=== PATIENT | male | born 2000 | race Caucasian/White ===

== ENCOUNTER 2020-08-13 23:33 | Emergency (ER) | payer OTHER, SELFPAY ==
--- NOTE | ~2020-08-13 | CT_ITS ---
EXAMINATION: CT brain wo con DATE: 08/14/2020 00:10 INDICATION: Syncope TECHNIQUE: Computed tomography (CT) of the head was performed without intravenous contrast. Sagittal and coronal reconstructions were performed. The mA was adjusted according to patient size. Iterative reconstruction technique was employed. The dose-length product was 605.33 mGy-cm. COMPARISON: head CT dated 05/29/17 FINDINGS: No acute intracranial hemorrhage, acute infarction or abnormal extra axial fluid collection. Ventricl es are normal and symmetric. No mass/mass effect. The orbits, paranasal sinuses and mastoid air cells are normal. IMPRESSION: 1. Normal head CT Reviewed, dictated and finalized at location A. IMPRESSION: 1. Normal head CT
--- NOTE | ~2020-08-13 | XR_ITS ---
EXAMINATION: XR chest 1V portable DATE: 08/14/2020 00:14 INDICATION: Syncope TECHNIQUE: frontal view of the chest was obtained. COMPARISON: Chest radiograph dated 05/29/2017 FINDINGS: The lungs remain clear with no focal airspace opacities, pulmonary edema, pleural effusion or pneumot horax. The cardiomediastinal silhouette is normal. Visualized bones and soft tissues are unremarkable . IMPRESSION: 1. Normal chest radiograph. Reviewed, dictated and finalized at location A. IMPRESSION: 1. Normal chest radiograph.
[2020-08-13 23:34] VITALS: BP 114/63; PULSE 66; RESP 16; TEMP 37; O2SAT 100
--- NOTE | 2020-08-13 23:51 | ECG_ITS ---
Measurements Intervals [place] Rate: 56 P: 27 [place]: 167 QRS: 79 QRSD: 88 T: 48 QT: 382 QTc: 371 Interpretive Statements SINUS BRADYCARDIA WITH SINUS ARRHYTHMIA BASELINE ARTIFACT- I, II, AVR, AVL BORDERLINE ECG Electronically Signed On 08-14-2020 7:07:26 CDT by August Figueroa D.O.
[2020-08-14 00:08] LABS: Basophils Absolute Auto 0.1 K/mm3 (0.0-0.1); Basophils Percent Auto 0.8 % (0.2-1.2); Eosinophils Absolute Auto 0.2 K/mm3 (0-0.3); Eosinophils Percent Auto 3.3 % (0-4.4); Hematocrit 41.7 % (42.0-52.0); Hemoglobin 14.5 g/dL (14.0-18.0); Immature Granulocyte Absolute 0.01 K/mm3 (0.00-0.031); Immature Granulocyte Percent A 0.2 % (0-0.5); Lymphocytes Absolute Auto 2.11 K/mm3 (0.9-3.2); Lymphocytes Percent Auto 32.7 % (18.3-44.2); Mean Corpuscular HGB Conc 34.8 g/dl (32-36); Mean Corpuscular Hemoglobin 32.3 pg (26-34); Mean Corpuscular Volume 92.9 fl (80-100); Mean Platelet Volume 10.2 fl (7.4-10.4); Monocytes Absolute Auto 0.6 K/mm3 (0.1-0.6); Monocytes Percent Auto 8.8 % (2.6-8.5); Neutrophils Absolute Auto 3.5 K/mm3 (1.3-6.7); Neutrophils Percent Auto 54.2 % (45.5-73.1); Platelet Count Result 217 k/mm3 (150-375); Red Blood Count 4.49 M/mm3 (4.6-6.20); Red Cell Distribution Width 11.9 % (11.5-14.5); White Blood Count 6.5 K/mm3 (4.5-10.0)
[2020-08-14] MEDS: SODIUM CHLORIDE 0.9% IV 1,000 ML 999 ML IV CONT (00:14)
[2020-08-14 00:19] LABS: Ethanol < 10 mg/dL (<10)
[2020-08-14 00:20] LABS: Alanine Aminotransferase 26 U/L (4-50); Albumin Level 4.3 g/dL (3.5-5.1); Alkaline Phosphatase 49 U/L (38-126); Anion Gap 7 mmol/L (8-16); Aspartate Amino Transferase 23 U/L (17-59); Bilirubin,Total 0.2 mg/dL (0.2-1.3); Blood Urea Nitrogen 17 mg/dL (9-20); Calcium 9.1 mg/dL (8.4-10.2); Carbon Dioxide 29 mmol/L (22-30); Chloride 105 mmol/L (98-107); Estimated CRCL calculation 102 ml/min; Estimated Glomerular Filt Rate > 60; Glucose 110 mg/dL (75-110); Potassium 3.6 mmol/L (3.4-5.0); Sodium 141 mmol/L (137-145)
--- NOTE | 2020-08-14 00:22 | PC.NURSE ---
called lab to add on D Dimer
[2020-08-14 00:31] LABS: Troponin I < 0.012 ng/mL (0.000-0.034)
--- NOTE | 2020-08-14 00:48 | ED.GENADULT ---
HPI - General Adult General Chief complaint: Dizziness Stated complaint: syncope Time Seen by Provider: 08/13/20 23:41 Source: RN notes reviewed History of Present Illness HPI narrative: Patient presents to emergency department from home for syncopal episode. Patient states that he was at home this evening he states he was having some discomfort in his right armpit. He states that he had stood up to show his girlfriend and put his arms above his head when he became lightheaded and passed out. Per the patient's significant other he was only out for approximately 5 seconds. No seizure-like activity was noted. The patient states he had felt fine today and had no symptoms throughout the day no recent illness. He denied having chest pain shortness of breath or any other symptoms and is asymptomatic at this time Related Data Allergies Allergy/AdvReac Type Severity Reaction Status Date / Time Cat Dander Allergy Mild Uncoded 04/26/08 13:10 Dog Dander Allergy Mild Uncoded 04/26/08 13:10 [email or web address] Allergy Mild Uncoded 02/02/09 14:31 Review of Systems Review of Systems: Narrative: Gen.: Denies fevers or chills Eyes: Denies eye pain or visual change ENT: Denies congestion Respiratory: Denies shortness of breath or cough CV: See HPI GI: Denies abdominal pain nausea, emesis or diarrhea Musculoskeletal: Denies back pain or muscle pain Neuro: Denies numbness, tingling, weakness or focal weakness Skin: Denies rash Except as documented, all other systems reviewed and negative PMF Past Medical History Medical History (Updated 08/14/20 @ 03:51 by Solomon Pearson DO) Patient denies significant medical history Social History Social History (Updated 08/14/20 @ 03:49 by Solomon Pearson DO) Smoking status: Never smoker Gender identity (if verbalized by the patient): Male Exam Narrative: Exam Narrative: APPEARANCE: No acute distress, nontoxic, resting in bed EYES: EOMI, PERRL HEENT: Normocephalic, atraumatic, OMM RESPIRATORY: No respiratory distress Clear to auscultation bilaterally with no rhonchi wheezing or rales. CARDIOVASCULAR: Regular rate and rhythm without murmurs rubs or gallops. Bilateral radial pulse 2+ ABDOMINAL: Soft, nontender, nondistended, no rebound or guarding MUSCULOSKELETAl: Moves all extremities. No clubbing, cyanosis or edema. Right axilla was examined there is no erythema no tenderness palpation NEURO: Awake and alert x 4. Following commands, speech normal, no focal deficits SKIN:: Warm, dry. No rashes lesions or abrasions PSYCHIATRIC: Normal affect/mood, Course Course Emergency Course: Patient's episode of syncope is felt due to high risk cause. Syncopal episode was brief and patient is now back to normal mental status. EKG is reviewed without high-risk changes for syncope: There are no signs of prolonged QT or Brugada syndrome. Patient ambulates with a steady gait and is felt to be a reasonable candidate for further evaluation as an outpatient Vital Signs Vital signs: Vital Signs Temperature 98.6 F 08/13/20 23:34 Pulse Rate 66 08/13/20 23:34 Respiratory Rate 16 08/13/20 23:34 Blood Pressure 114/63 08/13/20 23:34 Pulse Oximetry 100 08/13/20 23:34 Temperature 98.6 F 08/13/20 23:34 Pulse Rate 54 L 08/14/20 01:26 Respiratory Rate 16 08/14/20 01:21 Blood Pressure 104/62 08/14/20 01:26 Pulse Oximetry 98 08/14/20 01:21 Medical Decision Making Vital Signs Vital Signs: Vital Signs Temperature 98.6 F 08/13/20 23:34 Pulse Rate 66 08/13/20 23:34 Respiratory Rate 16 08/13/20 23:34 Blood Pressure 114/63 08/13/20 23:34 Pulse Oximetry 100 08/13/20 23:34 Temperature 98.6 F 08/13/20 23:34 Pulse Rate 54 L 08/14/20 01:26 Respiratory Rate 16 08/14/20 01:21 Blood Pressure 104/62 08/14/20 01:26 Pulse Oximetry 98 08/14/20 01:21 Lab Data Result diagrams: 08/14/20 00:00 08/14/20 00:00 Labs: Lab Result
[2020-08-14 00:49] LABS: D Dimer < 0.22 ug/mL (<0.48)
[2020-08-14 01:06] LABS: Add Urine Microscopic? NO; Appearance Urine Clear (Clear); Bilirubin Urine Negative (Negative); Blood Urine Negative (Negative); Color Urine Yellow (Yellow); Glucose Urine UA Negative (Negative); Ketones Urine Negative (Negative); Leukocyte Esterase Ur Negative LEU/UL (Negative); Nitrate Urine Negative (Negative); Protein Urine Negative (Negative); Urobilinogen Urine Negative mg/dL (<2.0)
[2020-08-14 01:18] LABS: Specific Grav Ur 1.031 (1.001-1.035)
[2020-08-14 01:21] VITALS: BP 95/53; PULSE 66; RESP 16; O2SAT 98
[2020-08-14 01:23] VITALS: BP 95/53; PULSE 52
[2020-08-14 01:25] VITALS: BP 110/54; PULSE 56
[2020-08-14 01:26] VITALS: BP 104/62; PULSE 54
[2020-08-14 01:27] LABS: Amphetamine Screen Urine Negative (Negative); Barbiturate Screen Urine Negative (Negative); Benzodiazepines Screen Urine Negative (Negative); Cannabinoid Screen Urine Positive (Negative); Cocaine Screen Urine Negative (Negative); Methadone Screen Urine Negative (Negative); Opiate Screen Urine Negative (Negative); Phencyclidine Screen Urine Negative (Negative)
[2020-08-14 03:42] LABS: Troponin I < 0.012 ng/mL (0.000-0.034)
[2020-08-14 03:56] VITALS: BP 112/65; PULSE 68; RESP 16; O2SAT 100
== END 2020-08-14 03:57 | disposition home or self-care (01) ==
PROVIDERS: Emergency Provider Emergency Medicine
DX: R55 Syncope and collapse (principal); R00.1 Bradycardia, unspecified
CPT/HCPCS: 36415; 70450; 71045; 80053; 80307; 81003; 84484; 85025; 85380; 93005; 96360; 99284; J7030

== ENCOUNTER 2022-01-22 12:00 | Emergency (ER) | payer BC, SELFPAY ==
[2022-01-22 12:17] VITALS: BP 137/73; PULSE 77; RESP 14; TEMP 36.5; O2SAT 99
--- NOTE | 2022-01-22 12:58 | ED.GENADULT ---
HPI - General Adult General Chief complaint: Unspecified <RADHA Huber Last Filed: 01/22/22 17:12> Stated complaint: left side of face is numb <RADHA Huber Last Filed: 01/22/22 17:12> Time Seen by Provider: 01/22/22 12:47 <RADHA Huber Last Filed: 01/22/22 17:12> Source: patient <RADHA Huber Last Filed: 01/22/22 17:12> Mode of arrival: ambulatory <RADHA Huber Last Filed: 01/22/22 17:12> Limitations: no limitations <RADHA Huber Filed: 01/22/22 17:12> History of Present Illness HPI narrative: Patient is a 21-year-old previously healthy male who presents the ED with report of left-sided facial weakness. Patient reports he woke up yesterday morning with paralysis of his left-sided face. He is unable to smile fully on his L side or fully close his left eye. He denies any recent infectious symptoms. He states he has felt fine recently until he woke up with this paralysis. No fever, chills, weakness, numbness, tingling, vision changes, headache, ear pain, ear drainage, slurred speech, confusion, dysarthria, dysphagia. Denies any rash, CP, SOB, pain. <RADHA Huber Last Filed: 01/22/22 17:12> Related Data Allergies/adverse reactions: Allergies Allergy/AdvReac Type Severity Reaction Status Date / Time No Known Allergies Allergy Verified 01/22/22 13:31 <Olive Sheikh PA-C - Last Filed: 01/22/22 17:12> Review of Systems Review of Systems: CONSTITUTIONAL: Denies fever, chills, or sweats. EYES: Denies visual changes, redness, or discharge. ENT: Denies otalgia, otorrhea. CARDIOVASCULAR: Denies chest pain. RESPIRATORY: Denies dyspnea. GASTROINTESTINAL: Denies nausea, vomiting, or diarrhea. SKIN: Denies rash or itching. MUSCULOSKELETAL: Denies back pain, joint pain, or myalgia. NEUROLOGIC: Reports paralysis of L sided face. Denies headache, numbness, tingling, confusion, dysarthria, dysphagia, or focal weakness. <Olive Sheikh PA-C - Last Filed: 01/22/22 17:12> All systems reviewed & are unremarkable except as noted in HPI and below <Olive Sheikh PA-C - Last Filed: 01/22/22 17:12> PMFSH Past Medical History Medical History: Medical History (Updated 01/22/22 @ 13:34 by Olive Sheikh PA-C) Patient denies significant medical history <Olive Sheikh PA-C - Last Filed: 01/22/22 17:12> Surgical History Surgical History: Surgical History (Updated 01/22/22 @ 13:33 by Olive Sheikh PA-C) No pertinent past surgical history <Olive Sheikh PA-C - Last Filed: 01/22/22 17:12> Social History Social History: Social History Smoking status: Never smoker Gender identity (if verbalized by the patient): Male <Olive Sheikh PA-C - Last Filed: 01/22/22 17:12> Exam Narrative: GENERAL: Well appearing, well-nourished, non-toxic, in no acute distress. HEAD: Normocephalic, atraumatic. EYES: PERRL/EOMI, conjunctivae clear bilaterally. No drainage. No nystagmus. Unable to fully close L eye, thin line of sclera seen. NOSE: Normal, no drainage. No Joseph sign. EARS: TMS clear, with good light reflex. No erythema or bulging. No vesicles. THROAT: Pharynx clear, no exudate. MMs moist. Tongue midline. NECK: Supple. No adenopathy, no masses. RESPIRATORY: Airway patent, respirations nonlabored. Clear to auscultation bilaterally, no rales, rhonchi, wheezing. CARDIOVASCULAR: Regular rate and rhythm without murmurs, rubs, or gallops. Peripheral pulses 2+ and equal bilaterally. MUSCULOSKELETAL: Moves all extremities. Strength/ROM intact without gross deformities or TTP. No edema. No calf tenderness. SKIN: Warm, dry, normal color. No rashes. NEURO: A&O X3. Speech clear. Follows commands. Sensation intact in face. Steady gait. No ataxic movements. Strength 5/5 in upper and lower extremities bilaterally. Equal senior sales manager strength. [id number] and finger-to-n
[2022-01-22 13:36] VITALS: BP 136/70; PULSE 70; RESP 18; O2SAT 99
== END 2022-01-22 14:06 | disposition home or self-care (01) ==
PROVIDERS: Emergency Provider Emergency Medicine; PCP Family Medicine
DX: G51.0 Bell's palsy (principal)
CPT/HCPCS: 99283; J2001; J2704

== ENCOUNTER 2022-08-25 14:01 | Emergency (ER) | payer SELFPAY ==
--- NOTE | ~2022-08-25 | CT_ITS ---
EXAMINATION: CT chest abdomen wo con DATE: 08/25/2022 14:32 INDICATION: swallowed a floss PICK. PAIN AROUND STERNUM . TECHNIQUE: Computed tomography (CT) of the chest and abdomen was performed without intravenous contra st. Automated exposure control and iterative reconstruction technique were employed. The dose-length product was 280.17 mGy-cm. COMPARISON: None FINDINGS: Thoracic aorta: No significant dilation or calcification. Lung parenchyma and airways: Lungs and airways are clear. Thoracic inlet, axillae and chest wall: No thyroid or soft tissue mass. No axillary lymphadenopathy. Mediastinum: No mass or lymphadenopathy. Heart and pericardium: Normal heart size. No pericardial effusion. Coronary artery calcifications: Absent. Pleura: No effusion or mass. Thoracic bones: No acute osseous finding in the chest. ABDOMEN: Liver: Normal. Biliary/Gallbladder: Gallbladder is normal. No bile duct dilation. Pancreas: No mass or duct dilation. Spleen: Normal. Adrenals:No mass. Kidneys: No mass, stone, or hydronephrosis. GI tract: 3 cm, thin linear lucency projecting at the gastric cardia, with a curved end giving it a s omewhat hockey stick appearance. No small or large bowel dilation. Normal appendix. Mesentery/Peritoneum: No ascites, mass, or free air. Retroperitoneum: No mass Soft Tissues: Soft tissues and body wall unremarkable. Abdominal bones: No acute osseous finding in the abdomen. IMPRESSION: 3 cm linear lucency at the gastric cardia with a somewhat hockey-stick shaped, correlate with the siz e and morphology of the reported swallowed object. Consider an upper abdominal radiograph for correla tion and possible referral for endoscopy. Otherwise normal CT chest and abdomen findings. Reviewed, dictated and finalized at location K. IMPRESSION: 3 cm linear lucency at the gastric cardia with a somewhat hockey-stick shaped, correlate with the size and morphology of the reported swallowed object. Consid er an upper abdominal radiograph for correlation and possible referral for endo scopy. Otherwise normal CT chest and abdomen findings.
[2022-08-25 14:05] VITALS: BP 127/90; PULSE 60; RESP 16; TEMP 36.3; O2SAT 99
--- NOTE | 2022-08-25 15:02 | ED.GENADULT ---
HPI - General Adult General Chief complaint: Skin/Abscess/Foreign Body Stated complaint: swallowed a tooth pick hurting in sternum Time Seen by Provider: 08/25/22 14:06 Source: patient and family Mode of arrival: ambulatory Limitations: no limitations History of Present Illness HPI narrative: this is a 21-year-old male who presents after he was using a floss PICC and took a breath and inadvertently swallowed the the object and having pain in his lower mid sternum with swallowing and with taking a deep breath. There was no choking he is not coughing no shortness of breath no fever chills no nausea or vomiting. 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, untreated Asthma BMI 23.0-23.9, adult Chronic anxiety 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) Nicotine dependence due to vaping non-tobacco product Patient denies significant medical history Seasonal allergic rhinitis cats, dogs, dust mite and seasonal Surgical History Surgical History No pertinent past surgical history Social History Social History Smoking status: Never smoker Alcohol intake: never Substance use: current Substance use type: marijuana Gender identity (if verbalized by the patient): Male Exam Const: General: healthy appearing, no acute distress and alert Limitations: no limitations and altered mental status HENMT: Head: normal to inspection Face and sinus: normal facial exam Mouth: Yes Normal oral and palatal mucosa present Eyes: Conjunctivae: conjunctivae normal EOM: EOMs intact bilaterally Direct Ophthalmoscopy: no photophobia Neck: Neck: normal visual inspection, no lymphadenopathy and no meningeal signs Chest: Chest palpation & inspection: normal inspection of the chest Resp: Effort & Inspection: normal respiratory effort Auscultation: clear to auscultation bilaterally Cardio: Rate: regular rate Rhythm: regular rhythm GI: GI Palp: Yes Soft to palpation : General: Yes bladder normal to palpation Urinary Catheter: Urinary Catheter: patent and draining Back/Spine/Pelvis: Back: no CVA tenderness Skin: General skin exam: normal color Rashes: no rashes Wounds: no wounds Neuro: General: patient oriented x3, moves all extremities, no meningeal signs and no focal motor deficits Extrem: General: normal to inspection and no clubbing, cyanosis or edema Psych: Mental Status: mental status grossly normal Affect: normal affect Course Course Emergency Course: CT scan performed and object was visualized in the gastric cardia, the patient is comfortable breathing easy O2 sats 99% no cough or congestion no shortness of breath no nausea vomiting, patient received 60mg IM Toradol, a GI consulted for endoscopy for removal. Vital Signs Vital signs: Vital Signs Temperature 36.3 C L 08/25/22 14:05 Pulse Rate 60 08/25/22 14:05 Respiratory Rate 16 08/25/22 14:05 Blood Pressure 127/90 08/25/22 14:05 Pulse Oximetry 99 08/25/22 14:05 Oxygen Delivery Room Air 08/25/22 14:05 Temperature 36.3 C L 08/25/22 14:05 Pulse Rate 60 08/25/22 14:05 Respiratory Rate 16 08/25/22 14:05 Blood Pressure 127/90 08/25/22 14:05 Pulse Oximetry 99 08/25/22 14:05 Oxygen Delivery Room Air 08/25/22 14:05 Transfer Transfered to:
[2022-08-25] MEDS: KETOROLAC (*BKC) 60 MG/2 ML VIAL IM (15:03)
[2022-08-25 16:26] VITALS: BP 118/73; PULSE 59; RESP 18; O2SAT 100
[2022-08-25] MEDS: ONDANSETRON INJ 4 MG/2 ML VIAL IV PUSH (16:31)
[2022-08-25] MEDS: MORPHINE SULFATE (*CRX) 4 MG/ML INJ IV PUSH (16:31)
--- NOTE | 2022-08-25 17:05 | PC.NURSE ---
[facility] notified of pt departure time [id number]
== END 2022-08-25 16:57 | disposition short-term general hospital (02) ==
PROVIDERS: Emergency Provider Emergency Medicine; PCP Family Medicine
DX: T18.2XXA Foreign body in stomach, initial encounter (principal)
CPT/HCPCS: 71250; 74150; 96372; 96374; 96375; 99285; J1885; J2270; J2405

== ENCOUNTER 2023-04-23 11:34 | Emergency (ER) | payer SELFPAY ==
[2023-04-23 11:36] VITALS: BP 120/75; PULSE 107; RESP 18; TEMP 36.6; O2SAT 99
--- NOTE | 2023-04-23 12:36 | ED.DENTAL ---
HPI - Dental/Oral General Chief complaint: Dental/Oral Stated complaint: left side facial swelling, tootheache few days ago Time Seen by Provider: 04/23/23 12:11 Source: patient Mode of arrival: ambulatory Limitations: no limitations History of Present Illness HPI Narrative: Left upper dental pain for 2 years. Patient cannot afford the money to pay for root canal. Was seen by his dentist 6 months ago. Symptoms started back again 2 to 3 days ago. He denies any fever, chills, nausea, vomiting, headache, trouble swallowing or breathing. 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) Nicotine dependence due to vaping non-tobacco product Patient denies significant medical history Seasonal allergic rhinitis cats, dogs, dust mite and seasonal Surgical History Surgical History No pertinent past surgical history Social History Social History Smoking status: Never smoker Alcohol intake: never Substance use: current Substance use type: marijuana Gender identity (if verbalized by the patient): Male Exam Narrative: General appearance: Well-developed, well-nourished Skin: Normal color Head: Normocephalic, nontraumatic Eyes: Clear conjunctiva ENT: Oropharynx normal, ears normal, nose normal Neck: Supple, nontender Chest and respiratory: Airway patent, no respiratory distress, no accessory muscle use Heart: Regular rate/rhythm Abdomen: Soft, nontender, no organomegaly, quiet bowel sounds Vascular: Normal peripheral pulses, normal capillary refill. Musculoskeletal: Normal range of motion, nontender back Neurologic: Alert and oriented ?3, TOBACCO SAMPLE PULLER is normal as tested, no gross motor deficit HENMT: Teeth and gingiva: abnormal tooth and associated gingiva (Left upper tooth decay and caries, no abscess formation, no discharge) Course Vital Signs Vital signs: Vital Signs Temperature 36.6 C 04/23/23 11:36 Pulse Rate 107 H 04/23/23 11:36 Respiratory Rate 18 04/23/23 11:36 Blood Pressure 120/75 04/23/23 11:36 Pulse Oximetry 99 04/23/23 11:36 Oxygen Delivery Room Air 04/23/23 11:36 Temperature 36.6 C 04/23/23 11:36 Pulse Rate 107 H 04/23/23 11:36 Respiratory Rate 18 04/23/23 11:36 Blood Pressure 120/75 04/23/23 11:36 Pulse Oximetry 99 04/23/23 11:36 Oxygen Delivery Room Air 04/23/23 11:36 MDM - Dental/Oral MDM Narrative Medical decision making narrative: Dental caries/infection, no imaging or labs are required at this time, Patient will be discharged on penicillin VK and ibuprofen to follow-up with dentist within 1 week. Dental extraction is recommended. Differential Diagnosis Differential diagnosis: Likely dental caries and toothache Critical Care Time Critical Care Time Critical Care Time: No Discharge Plan Discharge Clinical Impression: Dental decay, Toothache Patient Disposition: Home, Self-Care Condition: Stable Instructions: Antibiotic Form, Toothache (ED) Additional Instructions: Return if symptoms are worsening , call your dentist for appointment, take Tylenol as as needed for aches and pain,
== END 2023-04-23 12:43 | disposition home or self-care (01) ==
PROVIDERS: Emergency Provider Emergency Medicine; PCP Family Medicine
DX: K02.9 Dental caries, unspecified (principal); J45.909 Unspecified asthma, uncomplicated; F17.290 Nicotine dependence, other tobacco product, uncomplicated
CPT/HCPCS: 99283